=== PATIENT | male | born 1950 | race Caucasian/White ===

== ENCOUNTER 2021-03-26 12:41 | Emergency (ER) | payer MEDICAID ==
[~2021-03-26] VITALS: Ht 172.7 cm; Wt 104.5 kg
--- NOTE | 2021-03-26 13:14 | NUR ---
Hurt [phone] legal Guardian, pt lives in [facility] guardian wants evalulation of left leg, also concerned with UTI, hasn't taken haldol in 3 days, refusing to eat or take any of his meds. shelter refusing to take back states wants to kill all of [facility] staff.
[2021-03-26 14:30] LABS: MICROSCOPIC AUTO
[2021-03-26 14:32] LABS: AMPHETAMINE SCREEN, URINE Negative (Negative); BARBITURATE SCREEN, URINE Negative (Negative); BENZODIAZEPINE SCREEN, URINE Negative (Negative); CANNABINOID SCREEN, URINE Negative (Negative); COCAINE SCREEN, URINE Negative (Negative); METHADONE SCREEN, URINE Negative (Negative); OPIATE SCREEN, URINE Negative (Negative)
[2021-03-26 15:01] LABS: BASOPHILS % (AUTO) 1 % (0-1); EOSINOPHILS % (AUTO) 1 % (1-7); LYMPHOCYTES % (AUTO) 13 % (22-44); MEAN CORPUSCULAR HEMOGLOBIN 30.4 pg (27.5-34.5); MEAN CORPUSCULAR HGB CONC 33.6 g/dL (33.2-36.2); MEAN PLATELET VOLUME 9.5 fL (7.4-10.4); MONOCYTES % (AUTO) 9 % (2-9); NEUTROPHILS % (AUTO) 76 % (42-75); PLATELET COUNT 239 x10^3/uL (130-400); RED BLOOD COUNT 4.36 x10^6/uL (4.38-5.82); RED CELL DISTRIBUTION WIDTH 14.9 % (9.4-14.8)
[2021-03-26 15:11] LABS: ALANINE AMINOTRANSFERASE 18 U/L (12-78); ALBUMIN 3.6 g/dL (3.4-5.0); ANION GAP 7 mmol/L (5-15); CALCIUM 8.6 mg/dL (8.5-10.1); CHLORIDE 111 mmol/L (98-107); CREATININE 0.91 mg/dL (0.7-1.3)
[2021-03-26 15:13] LABS: ALKALINE PHOSPHATASE 99 U/L (45-117); BILIRUBIN,TOTAL 0.7 mg/dL (0.2-1.0); TOTAL PROTEIN 7.2 g/dL (6.4-8.2)
--- NOTE | 2021-03-26 15:24 | NUR ---
Urine sent to lab, pt agreed to blood drawn and sent. Pt is very irritable and becomes aggitated, he denies SI/HI but says he doesnt want to go back to his detention.
[2021-03-26] MEDS ORDERED: HALOPERIDOL 2 MG/ML ORAL SOL PO PRN (15:30)
[2021-03-26] MEDS ORDERED: HALOPERIDOL 5 MG/ML ONE (15:43)
--- NOTE | 2021-03-26 15:58 | NUR ---
Pt informed he is on L2K and that more than likely will be transported [facility] for further care. All belongings removed from pt, placed in bag and tagged/storage locker. Pt with michael ruvalcaba this rn had pt clean himself up, which he did. Linens changed with help from patient. IM haldol given for aggitation and comvativeness. Garage doors down, secure. Sitter in line of site.
[2021-03-26] MEDS ORDERED: POTASSIUM CHLORIDE 20 MEQ TAB.ER.PRT ONE (16:22)
[2021-03-26 16:30] VITALS: BP 118/78
[2021-03-26] MEDS ORDERED: HALOPERIDOL 5 MG/ML IM PRN (16:30)
[2021-03-26] MEDS ORDERED: POTASSIUM CHLORIDE 20 MEQ TAB.ER.PRT PO ONE (16:30)
[2021-03-26] MEDS ORDERED: PLEASE ENTER ALLERGIES MC SCH (16:30)
--- NOTE | 2021-03-26 18:08 | NUR ---
Pt has his own wc here labeled [facility] chair; also placed pt metalizer field operation it. Pt remains sleeping, dinner tray is at bedside. Sitter in line of site.
--- NOTE | 2021-03-26 18:25 | NUR ---
Pt was accepted by the SD, throughput working on transport. Pt remains sleeping, all belongings in locked storage, wc outside room.
--- NOTE | 2021-03-26 19:05 | NUR ---
BEDSIDE REPORT RECEIVED FROM ALEJANDRO HUNTER
--- NOTE | 2021-03-26 19:06 | NUR ---
PT SITTING UPRIGHT ON [facility] VSS. PT DENIES ANY NEEDS AT THIS TIME. EATING SOME OF FOOD HE WAS GIVEN EARLIER IN THE DAY. SAFETY PRECAUTIONS IN PLACE AND SITTER IN VIEW. AWAITING TRANSPORT TO [place]. WILL CONTINUE TO MONITOR.
--- NOTE | 2021-03-26 20:19 | NUR ---
PT TRANSPORTED FROM DEPARTMENT VIA [facility] TO [place]. PT LEFT DEPARTMENT WITH ALL BELONGINGS AND PERSONAL WHEELCHAIR. NO ADDITIONAL NEEDS. REPORT GIVEN TO [facility] AND ALL LEGAL PAPERWORK GIVEN TO [facility] UPON DEPARTURE.
== END 2021-03-26 20:22 ==
LOC: ED 13:00
DX: F23 Brief psychotic disorder (principal); F31.64 Bipolar disorder, current episode mixed, severe, with psychotic features; Z20.822 Contact with and (suspected) exposure to COVID-19; F17.200 Nicotine dependence, unspecified, uncomplicated
CPT/HCPCS: 36415; 80053; 80299; 80307; 80320; 81001; 85025; 87086; 87635; 96372; 99285; J1630; 80329; G0480